=== PATIENT | female | born 1950 | race Caucasian/White ===

== ENCOUNTER 2020-03-21 18:50 | Inpatient (IN) | payer MEDICARE, MEDICAID ==
[~2020-03-21] VITALS: Ht 165.1 cm; Wt 82.3 kg
[2020-03-21 19:00] VITALS: BP 155/66
[2020-03-21] MEDS ORDERED: ONDANSETRON HCL 4MG TABLET PO PRN (19:45)
[2020-03-21] MEDS ORDERED: CLONIDINE 0.1MG TABLET PO PRN (19:45)
[2020-03-21] MEDS ORDERED: IPRATROPIUM/ALBUTEROL 0.5-3(2.5)MG/3ML NEB HHN PRN (19:45)
[2020-03-21] MEDS ORDERED: DEXTROSE 50% WATER 50ML SYRINGE IV PRN (19:45)
[2020-03-21 20:00] VITALS: BP 155/66
[2020-03-21] MEDS: INSULIN LISPRO 100 UNITS/ML SUBCUT SCH (21:00)
[2020-03-21] MEDS: FAMOTIDINE 20MG TABLET PO SCH (21:19)
[2020-03-21] MEDS: ATORVASTATIN CALCIUM 40MG TABLET PO SCH (21:19)
[2020-03-21] MEDS: BLOOD SUGAR DIAGNOSTIC STRIP TEST SCH (21:52)
[2020-03-21] MEDS: HYDROCODONE/ACETAMINOPHEN 5/325MG TABLET PO PRN (22:06)
[2020-03-22] MEDS: HALOPERIDOL LACTATE 5MG/ML VIAL IM PRN ×2 (02:23→21:08)
[2020-03-22] MEDS: BLOOD SUGAR DIAGNOSTIC STRIP TEST SCH ×4 (05:26→21:16)
[2020-03-22] MEDS: INSULIN LISPRO 100 UNITS/ML SUBCUT SCH ×4 (07:01→21:00)
[2020-03-22 08:00] VITALS: BP 13/62
[2020-03-22 08:00] LABS: BASOPHILS % 0.6 % (0.0-2.0); EOSINOPHILS % 4.1 % (0.0-5.0); HEMATOCRIT. 26.2 % (36.0-48.0); HEMOGLOBIN. 8.9 g/dL (12.0-16.0); LYMPHOCYTES % 16.7 % (20.0-50.0); MEAN CORPUSCULAR HEMOGLOBIN 29.8 pg (28.0-32.0); MEAN CORPUSCULAR VOLUME 87.6 fL (81.0-99.0); MEAN PLATELET VOLUME 7.5 fl (7.4-10.4); MONOCYTES % 12.3 % (2.0-8.0); NEUTROPHILS % 66.3 % (40.0-76.0); PLATELET 463 x1000/uL (130-400); RED BLOOD CELL COUNT 2.99 mill/uL (4.2-5.4); RED CELL DISTRIBUTION WIDTH 12.8 % (11.6-14.6)
[2020-03-22 08:20] LABS: CHLORIDE 106 mEq/L (98-107)
[2020-03-22] MEDS: ASPIRIN 81MG EC TABLET PO SCH (10:15)
[2020-03-22] MEDS: AMLODIPINE 5MG TABLET PO SCH (10:16)
[2020-03-22] MEDS: POTASSIUM CHLORIDE 20MEQ TABLET SR PO SCH (10:16)
[2020-03-22] MEDS: PANTOPRAZOLE 40MG DR TABLET PO SCH (10:16)
[2020-03-22] MEDS: LOSARTAN POTASSIUM 50 MG TABLET PO SCH (10:16)
[2020-03-22] MEDS: METFORMIN HCL 500MG TABLET PO SCH ×2 (10:17→17:41)
[2020-03-22] MEDS: GABAPENTIN 300MG CAPSULE PO SCH ×2 (10:17→17:41)
[2020-03-22] MEDS: CLOPIDOGREL 75MG TABLET PO SCH (10:17)
[2020-03-22] MEDS: DULOXETINE HCL 60MG DR CAPSULE PO SCH (10:21)
[2020-03-22] MEDS: ENOXAPARIN 40MG/0.4ML SYR SUBCUT SCH (10:23)
[2020-03-22] MEDS: HYDROCODONE/ACETAMINOPHEN 5/325MG TABLET PO PRN ×2 (10:31→19:02)
[2020-03-22] MEDS: ACETAMINOPHEN 325MG TABLET PO PRN (14:41)
[2020-03-22] MEDS: CEPHALEXIN 250MG CAPSULE PO SCH ×2 (14:42→21:08)
[2020-03-22] MEDS ORDERED: CEFTRIAXONE 2 G PREMIX 50 ML IV SCH (17:00)
[2020-03-22] MEDS ORDERED: CEFTRIAXONE 2 G in DEXTROSE 5% WATER 50 ML IV SCH (17:00)
[2020-03-22 18:11] LABS: VITAMIN B12 SERUM 660 pg/mL (211-911)
[2020-03-22 20:00] VITALS: BP 143/57
[2020-03-22] MEDS: FAMOTIDINE 20MG TABLET PO SCH (21:07)
[2020-03-22] MEDS: ATORVASTATIN CALCIUM 40MG TABLET PO SCH (21:08)
[2020-03-22] MEDS ORDERED: INSULIN GLARGINE UD 100 UNITS/ML SYR SUBCUT SCH (22:00)
[2020-03-22] MEDS ORDERED: CEPHALEXIN 250 MG/5 ML 100ML PO SCH (22:00)
[2020-03-23] MEDS: CEPHALEXIN 250MG CAPSULE PO SCH ×3 (05:41→21:38)
[2020-03-23] MEDS: BLOOD SUGAR DIAGNOSTIC STRIP TEST SCH ×4 (05:44→21:39)
[2020-03-23] MEDS: INSULIN LISPRO 100 UNITS/ML SUBCUT SCH ×4 (05:48→22:11)
[2020-03-23 07:00] LABS: BASOPHILS % 0.7 % (0.0-2.0); EOSINOPHILS % 4.6 % (0.0-5.0); HEMOGLOBIN. 8.7 g/dL (12.0-16.0); LYMPHOCYTES % 17.7 % (20.0-50.0); MEAN CORPUSCULAR HEMOGLOBIN 29.2 pg (28.0-32.0); MEAN CORPUSCULAR VOLUME 87.4 fL (81.0-99.0); MEAN PLATELET VOLUME 7.3 fl (7.4-10.4); MONOCYTES % 13.5 % (2.0-8.0); NEUTROPHILS % 63.5 % (40.0-76.0); PLATELET 500 x1000/uL (130-400); RED BLOOD CELL COUNT 2.98 mill/uL (4.2-5.4); RED CELL DISTRIBUTION WIDTH 12.8 % (11.6-14.6)
[2020-03-23 09:43] VITALS: BP 147/75
[2020-03-23] MEDS: DULOXETINE HCL 60MG DR CAPSULE PO SCH (09:58)
[2020-03-23] MEDS: PANTOPRAZOLE 40MG DR TABLET PO SCH (09:58)
[2020-03-23] MEDS: CLOPIDOGREL 75MG TABLET PO SCH (09:58)
[2020-03-23] MEDS: ASPIRIN 81MG EC TABLET PO SCH (09:58)
[2020-03-23] MEDS: METFORMIN HCL 500MG TABLET PO SCH ×2 (09:58→16:57)
[2020-03-23] MEDS: LOSARTAN POTASSIUM 50 MG TABLET PO SCH (09:58)
[2020-03-23] MEDS: AMLODIPINE 5MG TABLET PO SCH (09:58)
[2020-03-23] MEDS: HYDROCODONE/ACETAMINOPHEN 5/325MG TABLET PO PRN (09:59)
[2020-03-23] MEDS: ENOXAPARIN 40MG/0.4ML SYR SUBCUT SCH (09:59)
[2020-03-23] MEDS: POTASSIUM CHLORIDE 20MEQ TABLET SR PO SCH (09:59)
[2020-03-23] MEDS ORDERED: MAGNESIUM GLUCONATE 500MG TABLET PO SCH (10:00)
[2020-03-23] MEDS: GABAPENTIN 300MG CAPSULE PO SCH ×2 (10:02→16:57)
[2020-03-23] MEDS ORDERED: MAGNESIUM 2 G PREMIX 50 ML IV NR (16:00)
[2020-03-23] MEDS: RISPERIDONE 0.5MG TABLET PO SCH (16:56)
[2020-03-23] MEDS: TRAMADOL 50MG TABLET PO PRN (17:00)
[2020-03-23] MEDS: HYDRALAZINE HCL 25MG TABLET PO SCH ×2 (17:01→21:38)
[2020-03-23] MEDS: MAGNESIUM OXIDE 400MG TABLET PO SCH (19:49)
[2020-03-23 20:00] VITALS: BP 126/64
[2020-03-23] MEDS: FAMOTIDINE 20MG TABLET PO SCH (21:38)
[2020-03-23] MEDS: ATORVASTATIN CALCIUM 40MG TABLET PO SCH (21:39)
[2020-03-23] MEDS: NYSTATIN POWDER 15GM TOP SCH (21:52)
[2020-03-23] MEDS: INSULIN GLARGINE UD 100 UNITS/ML SYR SUBCUT SCH (22:11)
[2020-03-24] MEDS: CEPHALEXIN 250MG CAPSULE PO SCH ×3 (05:12→22:05)
[2020-03-24] MEDS: HYDRALAZINE HCL 25MG TABLET PO SCH ×3 (05:13→22:07)
[2020-03-24] MEDS: BLOOD SUGAR DIAGNOSTIC STRIP TEST SCH ×4 (05:53→21:00)
[2020-03-24 06:09] LABS: BASOPHILS % 0.9 % (0.0-2.0); EOSINOPHILS % 4.4 % (0.0-5.0); HEMATOCRIT. 25.3 % (36.0-48.0); HEMOGLOBIN. 8.4 g/dL (12.0-16.0); LYMPHOCYTES % 18.3 % (20.0-50.0); MEAN CORPUSCULAR HEMOGLOBIN 29.4 pg (28.0-32.0); MEAN CORPUSCULAR VOLUME 88.4 fL (81.0-99.0); MEAN PLATELET VOLUME 7.1 fl (7.4-10.4); MONOCYTES % 10.4 % (2.0-8.0); PLATELET 499 x1000/uL (130-400); RED BLOOD CELL COUNT 2.87 mill/uL (4.2-5.4)
[2020-03-24 07:56] VITALS: BP 129/73
[2020-03-24] MEDS: POTASSIUM CHLORIDE 20MEQ TABLET SR PO SCH (08:38)
[2020-03-24] MEDS: METFORMIN HCL 500MG TABLET PO SCH ×2 (08:38→16:22)
[2020-03-24] MEDS: ASPIRIN 81MG EC TABLET PO SCH (08:38)
[2020-03-24] MEDS: ENOXAPARIN 40MG/0.4ML SYR SUBCUT SCH (08:39)
[2020-03-24] MEDS: AMLODIPINE 5MG TABLET PO SCH (08:39)
[2020-03-24] MEDS: GABAPENTIN 300MG CAPSULE PO SCH ×2 (08:39→16:22)
[2020-03-24] MEDS: INSULIN LISPRO 100 UNITS/ML SUBCUT SCH ×4 (08:39→22:03)
[2020-03-24] MEDS: MAGNESIUM OXIDE 400MG TABLET PO SCH ×2 (08:39→16:22)
[2020-03-24] MEDS: CLOPIDOGREL 75MG TABLET PO SCH (08:39)
[2020-03-24] MEDS: PANTOPRAZOLE 40MG DR TABLET PO SCH (08:39)
[2020-03-24] MEDS: DULOXETINE HCL 60MG DR CAPSULE PO SCH (08:39)
[2020-03-24] MEDS: RISPERIDONE 0.5MG TABLET PO SCH (08:39)
[2020-03-24] MEDS: LOSARTAN POTASSIUM 50 MG TABLET PO SCH (08:39)
[2020-03-24] MEDS: NYSTATIN POWDER 15GM TOP SCH ×2 (08:41→21:00)
[2020-03-24] MEDS ORDERED: MAGNESIUM OXIDE 400MG TABLET PO SCH (09:00)
[2020-03-24 19:35] VITALS: BP 123/63
[2020-03-24] MEDS: ATORVASTATIN CALCIUM 40MG TABLET PO SCH (22:04)
[2020-03-24] MEDS: FAMOTIDINE 20MG TABLET PO SCH (22:05)
[2020-03-24] MEDS: INSULIN GLARGINE UD 100 UNITS/ML SYR SUBCUT SCH (22:10)
[2020-03-25] MEDS: BLOOD SUGAR DIAGNOSTIC STRIP TEST SCH ×4 (05:42→21:25)
[2020-03-25] MEDS: CEPHALEXIN 250MG CAPSULE PO SCH ×3 (05:42→21:48)
[2020-03-25] MEDS: HYDRALAZINE HCL 25MG TABLET PO SCH ×3 (05:42→21:49)
[2020-03-25] MEDS: INSULIN LISPRO 100 UNITS/ML SUBCUT SCH ×4 (05:59→21:53)
[2020-03-25 07:31] VITALS: BP 122/65
[2020-03-25] MEDS: NYSTATIN POWDER 15GM TOP SCH ×2 (08:24→21:34)
[2020-03-25] MEDS: ENOXAPARIN 40MG/0.4ML SYR SUBCUT SCH (08:24)
[2020-03-25] MEDS: METFORMIN HCL 500MG TABLET PO SCH ×2 (08:24→16:55)
[2020-03-25] MEDS: GABAPENTIN 300MG CAPSULE PO SCH ×2 (08:25→16:55)
[2020-03-25] MEDS: ASPIRIN 81MG EC TABLET PO SCH (08:25)
[2020-03-25] MEDS: CLOPIDOGREL 75MG TABLET PO SCH (08:25)
[2020-03-25] MEDS: POTASSIUM CHLORIDE 20MEQ TABLET SR PO SCH (08:25)
[2020-03-25] MEDS: RISPERIDONE 0.5MG TABLET PO SCH (08:25)
[2020-03-25] MEDS: DULOXETINE HCL 60MG DR CAPSULE PO SCH (08:25)
[2020-03-25] MEDS: AMLODIPINE 5MG TABLET PO SCH (08:25)
[2020-03-25] MEDS: MAGNESIUM OXIDE 400MG TABLET PO SCH ×2 (08:25→16:55)
[2020-03-25] MEDS: PANTOPRAZOLE 40MG DR TABLET PO SCH (08:25)
[2020-03-25] MEDS: LOSARTAN POTASSIUM 50 MG TABLET PO SCH (08:28)
[2020-03-25 13:06] VITALS: BP 134/70
[2020-03-25] MEDS: TRAMADOL 50MG TABLET PO PRN (17:01)
[2020-03-25] MEDS: HYDROCODONE/ACETAMINOPHEN 5/325MG TABLET PO PRN (18:20)
[2020-03-25 20:00] VITALS: BP 129/65
[2020-03-25] MEDS: ATORVASTATIN CALCIUM 40MG TABLET PO SCH (21:49)
[2020-03-25] MEDS: FAMOTIDINE 20MG TABLET PO SCH (21:49)
[2020-03-25] MEDS: INSULIN GLARGINE UD 100 UNITS/ML SYR SUBCUT SCH (21:54)
[2020-03-26] MEDS: HYDRALAZINE HCL 25MG TABLET PO SCH ×3 (06:00→20:33)
[2020-03-26] MEDS: BLOOD SUGAR DIAGNOSTIC STRIP TEST SCH ×4 (06:19→21:00)
[2020-03-26] MEDS: CEPHALEXIN 250MG CAPSULE PO SCH ×3 (06:32→20:34)
[2020-03-26] MEDS: INSULIN LISPRO 100 UNITS/ML SUBCUT SCH ×5 (06:33→22:24)
[2020-03-26 06:53] LABS: BASOPHILS % 1.3 % (0.0-2.0); EOSINOPHILS % 6.2 % (0.0-5.0); HEMATOCRIT. 24.8 % (36.0-48.0); HEMOGLOBIN. 8.2 g/dL (12.0-16.0); LYMPHOCYTES % 18.6 % (20.0-50.0); MEAN CORPUSCULAR HEMOGLOBIN 29.3 pg (28.0-32.0); MEAN CORPUSCULAR VOLUME 88.8 fL (81.0-99.0); MEAN PLATELET VOLUME 7.1 fl (7.4-10.4); MONOCYTES % 13.3 % (2.0-8.0); NEUTROPHILS % 60.6 % (40.0-76.0); PLATELET 513 x1000/uL (130-400); RED BLOOD CELL COUNT 2.79 mill/uL (4.2-5.4); RED CELL DISTRIBUTION WIDTH 13.2 % (11.6-14.6)
[2020-03-26 07:48] VITALS: BP 113/68
[2020-03-26 07:57] LABS: PHOSPHORUS 3.8 mg/dL (2.5-4.9)
[2020-03-26 08:02] VITALS: BP 113/68
[2020-03-26] MEDS: POTASSIUM CHLORIDE 20MEQ TABLET SR PO SCH (08:52)
[2020-03-26] MEDS: GABAPENTIN 300MG CAPSULE PO SCH ×2 (08:52→17:44)
[2020-03-26] MEDS: RISPERIDONE 0.5MG TABLET PO SCH (08:52)
[2020-03-26] MEDS: MAGNESIUM OXIDE 400MG TABLET PO SCH ×2 (08:52→17:44)
[2020-03-26] MEDS: ASPIRIN 81MG EC TABLET PO SCH (08:52)
[2020-03-26] MEDS: DULOXETINE HCL 60MG DR CAPSULE PO SCH (08:52)
[2020-03-26] MEDS: PANTOPRAZOLE 40MG DR TABLET PO SCH (08:52)
[2020-03-26] MEDS: LOSARTAN POTASSIUM 50 MG TABLET PO SCH (08:52)
[2020-03-26] MEDS: CLOPIDOGREL 75MG TABLET PO SCH (08:52)
[2020-03-26] MEDS: AMLODIPINE 5MG TABLET PO SCH (08:53)
[2020-03-26] MEDS: ENOXAPARIN 40MG/0.4ML SYR SUBCUT SCH (08:53)
[2020-03-26] MEDS: METFORMIN HCL 500MG TABLET PO SCH ×2 (08:53→17:44)
[2020-03-26] MEDS: NYSTATIN POWDER 15GM TOP SCH ×2 (08:55→20:34)
[2020-03-26] MEDS: HYDROCODONE/ACETAMINOPHEN 5/325MG TABLET PO PRN (14:46)
[2020-03-26] MEDS: FAMOTIDINE 20MG TABLET PO SCH (20:32)
[2020-03-26] MEDS: ATORVASTATIN CALCIUM 40MG TABLET PO SCH (20:33)
[2020-03-26] MEDS ORDERED: INSULIN GLARGINE UD 100 UNITS/ML SYR SUBCUT SCH (22:00)
[2020-03-26 22:03] VITALS: BP 130/69
[2020-03-27] MEDS: HYDRALAZINE HCL 25MG TABLET PO SCH ×3 (05:45→22:00)
[2020-03-27] MEDS: CEPHALEXIN 250MG CAPSULE PO SCH ×2 (05:46→13:09)
[2020-03-27] MEDS: BLOOD SUGAR DIAGNOSTIC STRIP TEST SCH ×4 (05:46→21:12)
[2020-03-27] MEDS: INSULIN LISPRO 100 UNITS/ML SUBCUT SCH ×4 (06:08→21:14)
[2020-03-27 07:48] VITALS: BP 149/90
[2020-03-27] MEDS: TRAMADOL 50MG TABLET PO PRN ×2 (08:08→20:46)
[2020-03-27] MEDS: LOSARTAN POTASSIUM 50 MG TABLET PO SCH (08:28)
[2020-03-27] MEDS: POTASSIUM CHLORIDE 20MEQ TABLET SR PO SCH (08:28)
[2020-03-27] MEDS: RISPERIDONE 0.5MG TABLET PO SCH (08:28)
[2020-03-27] MEDS: ASPIRIN 81MG EC TABLET PO SCH (08:28)
[2020-03-27] MEDS: METFORMIN HCL 500MG TABLET PO SCH ×2 (08:28→16:56)
[2020-03-27] MEDS: GABAPENTIN 300MG CAPSULE PO SCH ×2 (08:28→16:57)
[2020-03-27] MEDS: DULOXETINE HCL 60MG DR CAPSULE PO SCH (08:28)
[2020-03-27] MEDS: CLOPIDOGREL 75MG TABLET PO SCH (08:28)
[2020-03-27] MEDS: AMLODIPINE 5MG TABLET PO SCH ×2 (08:29→20:48)
[2020-03-27] MEDS: ENOXAPARIN 40MG/0.4ML SYR SUBCUT SCH (08:29)
[2020-03-27] MEDS: NYSTATIN POWDER 15GM TOP SCH ×2 (08:31→20:47)
[2020-03-27] MEDS: ACETAMINOPHEN 325MG TABLET PO PRN (12:02)
[2020-03-27 20:00] VITALS: BP 140/77
[2020-03-27 20:30] VITALS: BP 129/70
[2020-03-27] MEDS: ATORVASTATIN CALCIUM 40MG TABLET PO SCH (20:45)
[2020-03-27] MEDS: FAMOTIDINE 20MG TABLET PO SCH (20:45)
[2020-03-27] MEDS ORDERED: INSULIN GLARGINE UD 100 UNITS/ML SYR SUBCUT SCH (22:00)
[2020-03-28] MEDS: HYDRALAZINE HCL 25MG TABLET PO SCH ×3 (05:05→21:34)
[2020-03-28] MEDS: BLOOD SUGAR DIAGNOSTIC STRIP TEST SCH ×4 (06:14→20:08)
[2020-03-28] MEDS: INSULIN LISPRO 100 UNITS/ML SUBCUT SCH ×4 (06:32→20:20)
[2020-03-28 06:53] LABS: BASOPHILS % 1.4 % (0.0-2.0); HEMATOCRIT. 23.7 % (36.0-48.0); HEMOGLOBIN. 7.9 g/dL (12.0-16.0); MEAN CORPUSCULAR HEMOGLOBIN 29.4 pg (28.0-32.0); MEAN CORPUSCULAR VOLUME 88.2 fL (81.0-99.0); NEUTROPHILS % 58.6 % (40.0-76.0); PLATELET 491 x1000/uL (130-400); RED BLOOD CELL COUNT 2.69 mill/uL (4.2-5.4); RED CELL DISTRIBUTION WIDTH 13.4 % (11.6-14.6)
[2020-03-28 08:13] VITALS: BP 117/58
[2020-03-28] MEDS: GABAPENTIN 300MG CAPSULE PO SCH ×2 (09:41→16:28)
[2020-03-28] MEDS: AMLODIPINE 5MG TABLET PO SCH ×2 (09:41→20:07)
[2020-03-28] MEDS: DULOXETINE HCL 60MG DR CAPSULE PO SCH (09:41)
[2020-03-28] MEDS: POTASSIUM CHLORIDE 20MEQ TABLET SR PO SCH (09:42)
[2020-03-28] MEDS: ENOXAPARIN 40MG/0.4ML SYR SUBCUT SCH (09:42)
[2020-03-28] MEDS: CLOPIDOGREL 75MG TABLET PO SCH (09:42)
[2020-03-28] MEDS: LOSARTAN POTASSIUM 50 MG TABLET PO SCH (09:42)
[2020-03-28] MEDS: ASPIRIN 81MG EC TABLET PO SCH (09:42)
[2020-03-28] MEDS: METFORMIN HCL 500MG TABLET PO SCH ×2 (09:42→16:28)
[2020-03-28] MEDS: RISPERIDONE 0.5MG TABLET PO SCH (09:42)
[2020-03-28] MEDS: MAGNESIUM GLUCONATE 500MG TABLET PO SCH (09:44)
[2020-03-28] MEDS: NYSTATIN POWDER 15GM TOP SCH ×2 (09:44→20:07)
[2020-03-28] MEDS ORDERED: MAGNESIUM 2 G PREMIX 50 ML IV SCH (12:00)
[2020-03-28] MEDS: HYDROCODONE/ACETAMINOPHEN 5/325MG TABLET PO PRN (12:11)
[2020-03-28] MEDS: ACETAMINOPHEN 325MG TABLET PO PRN (16:28)
[2020-03-28 20:00] VITALS: BP 120/69
[2020-03-28] MEDS: FAMOTIDINE 20MG TABLET PO SCH (20:08)
[2020-03-28] MEDS: ATORVASTATIN CALCIUM 40MG TABLET PO SCH (20:08)
[2020-03-28] MEDS: TRAMADOL 50MG TABLET PO PRN (21:37)
[2020-03-28] MEDS: INSULIN GLARGINE UD 100 UNITS/ML SYR SUBCUT SCH (21:40)
[2020-03-29] MEDS: HYDRALAZINE HCL 25MG TABLET PO SCH ×3 (06:02→21:51)
[2020-03-29] MEDS: TRAMADOL 50MG TABLET PO PRN (06:03)
[2020-03-29] MEDS: BLOOD SUGAR DIAGNOSTIC STRIP TEST SCH ×4 (06:03→21:46)
[2020-03-29] MEDS: INSULIN LISPRO 100 UNITS/ML SUBCUT SCH ×4 (06:07→21:53)
[2020-03-29 06:50] LABS: BASOPHILS % 1.5 % (0.0-2.0); EOSINOPHILS % 6.5 % (0.0-5.0); HEMATOCRIT. 26.3 % (36.0-48.0); HEMOGLOBIN. 8.7 g/dL (12.0-16.0); LYMPHOCYTES % 23.3 % (20.0-50.0); MEAN CORPUSCULAR HEMOGLOBIN 29.4 pg (28.0-32.0); MEAN CORPUSCULAR VOLUME 88.7 fL (81.0-99.0); MEAN PLATELET VOLUME 7.1 fl (7.4-10.4); MONOCYTES % 14.8 % (2.0-8.0); NEUTROPHILS % 53.9 % (40.0-76.0); PLATELET 507 x1000/uL (130-400); RED BLOOD CELL COUNT 2.96 mill/uL (4.2-5.4); RED CELL DISTRIBUTION WIDTH 13.5 % (11.6-14.6)
[2020-03-29 07:27] VITALS: BP 144/78
[2020-03-29] MEDS: METFORMIN HCL 500MG TABLET PO SCH ×2 (08:40→16:41)
[2020-03-29] MEDS: ENOXAPARIN 40MG/0.4ML SYR SUBCUT SCH (08:40)
[2020-03-29] MEDS: AMLODIPINE 5MG TABLET PO SCH ×2 (08:40→21:54)
[2020-03-29] MEDS: ASPIRIN 81MG EC TABLET PO SCH (08:40)
[2020-03-29] MEDS: MAGNESIUM GLUCONATE 500MG TABLET PO SCH (08:40)
[2020-03-29] MEDS: LOSARTAN POTASSIUM 50 MG TABLET PO SCH (08:41)
[2020-03-29] MEDS: DULOXETINE HCL 60MG DR CAPSULE PO SCH (08:41)
[2020-03-29] MEDS: CLOPIDOGREL 75MG TABLET PO SCH (08:41)
[2020-03-29] MEDS: GABAPENTIN 300MG CAPSULE PO SCH ×2 (08:41→16:41)
[2020-03-29] MEDS: RISPERIDONE 0.5MG TABLET PO SCH (08:41)
[2020-03-29] MEDS: NYSTATIN POWDER 15GM TOP SCH ×2 (08:44→21:53)
[2020-03-29 13:52] VITALS: BP 126/78
[2020-03-29 19:57] VITALS: BP 127/71
[2020-03-29] MEDS: FAMOTIDINE 20MG TABLET PO SCH (21:50)
[2020-03-29] MEDS: ATORVASTATIN CALCIUM 40MG TABLET PO SCH (21:50)
[2020-03-29] MEDS: INSULIN GLARGINE UD 100 UNITS/ML SYR SUBCUT SCH (21:52)
[2020-03-29] MEDS: ACETAMINOPHEN 325MG TABLET PO PRN (22:30)
[2020-03-30] MEDS: BLOOD SUGAR DIAGNOSTIC STRIP TEST SCH ×4 (06:17→20:33)
[2020-03-30] MEDS: HYDRALAZINE HCL 25MG TABLET PO SCH (06:22)
[2020-03-30 06:33] LABS: HEMATOCRIT. 27.2 % (36.0-48.0); HEMOGLOBIN. 8.9 g/dL (12.0-16.0); MEAN CORPUSCULAR HEMOGLOBIN 29.2 pg (28.0-32.0); MEAN CORPUSCULAR VOLUME 89.1 fL (81.0-99.0); MEAN PLATELET VOLUME 7.3 fl (7.4-10.4); PLATELET 475 x1000/uL (130-400); RED BLOOD CELL COUNT 3.05 mill/uL (4.2-5.4); RED CELL DISTRIBUTION WIDTH 13.7 % (11.6-14.6)
[2020-03-30 07:47] VITALS: BP 148/74
[2020-03-30] MEDS: GABAPENTIN 300MG CAPSULE PO SCH ×2 (08:04→16:54)
[2020-03-30] MEDS: ENOXAPARIN 40MG/0.4ML SYR SUBCUT SCH (08:04)
[2020-03-30] MEDS: ASPIRIN 81MG EC TABLET PO SCH (08:04)
[2020-03-30] MEDS: AMLODIPINE 5MG TABLET PO SCH ×2 (08:04→21:36)
[2020-03-30] MEDS: MAGNESIUM GLUCONATE 500MG TABLET PO SCH (08:04)
[2020-03-30] MEDS: RISPERIDONE 0.5MG TABLET PO SCH (08:05)
[2020-03-30] MEDS: NYSTATIN POWDER 15GM TOP SCH ×2 (08:05→21:36)
[2020-03-30] MEDS: LOSARTAN POTASSIUM 50 MG TABLET PO SCH (08:05)
[2020-03-30] MEDS: METFORMIN HCL 500MG TABLET PO SCH ×2 (08:05→16:54)
[2020-03-30] MEDS: DULOXETINE HCL 60MG DR CAPSULE PO SCH (08:05)
[2020-03-30] MEDS: CLOPIDOGREL 75MG TABLET PO SCH (08:05)
[2020-03-30] MEDS: INSULIN LISPRO 100 UNITS/ML SUBCUT SCH ×4 (08:06→20:56)
[2020-03-30] MEDS ORDERED: MAGNESIUM GLUCONATE 500MG TABLET PO NR (09:00)
[2020-03-30] MEDS ORDERED: MAGNESIUM 2 G PREMIX 50 ML IV NR (10:00)
[2020-03-30 10:30] LABS: PLATELET ESTIMATE INCREASED
[2020-03-30] MEDS: HYDRALAZINE HCL 50MG TABLET PO SCH ×2 (14:03→21:36)
[2020-03-30] MEDS: HYDROCODONE/ACETAMINOPHEN 5/325MG TABLET PO PRN (14:03)
[2020-03-30] MEDS ORDERED: CYANOCOBALAMIN 1000MCG/ML VIAL IM NR (16:00)
[2020-03-30 17:20] LABS: CREATINE KINASE 59 IU/L (26-192)
[2020-03-30 20:00] VITALS: BP 138/75
[2020-03-30] MEDS: FAMOTIDINE 20MG TABLET PO SCH (21:35)
[2020-03-30] MEDS: ATORVASTATIN CALCIUM 40MG TABLET PO SCH (21:36)
[2020-03-30] MEDS: INSULIN GLARGINE UD 100 UNITS/ML SYR SUBCUT SCH (21:38)
[2020-03-31] MEDS: BLOOD SUGAR DIAGNOSTIC STRIP TEST SCH ×4 (05:49→21:21)
[2020-03-31] MEDS: HYDRALAZINE HCL 50MG TABLET PO SCH ×3 (05:50→21:24)
[2020-03-31 06:42] LABS: BASOPHILS % 1.8 % (0.0-2.0); EOSINOPHILS % 6.7 % (0.0-5.0); HEMATOCRIT. 25.9 % (36.0-48.0); HEMOGLOBIN. 8.7 g/dL (12.0-16.0); LYMPHOCYTES % 21.9 % (20.0-50.0); MEAN CORPUSCULAR HEMOGLOBIN 29.9 pg (28.0-32.0); MEAN CORPUSCULAR VOLUME 88.5 fL (81.0-99.0); MEAN PLATELET VOLUME 7.3 fl (7.4-10.4); MONOCYTES % 12.7 % (2.0-8.0); NEUTROPHILS % 56.9 % (40.0-76.0); PLATELET 481 x1000/uL (130-400); RED BLOOD CELL COUNT 2.93 mill/uL (4.2-5.4); RED CELL DISTRIBUTION WIDTH 13.9 % (11.6-14.6)
[2020-03-31 06:56] LABS: PHOSPHORUS 3.9 mg/dL (2.5-4.9)
[2020-03-31 07:21] LABS: FOLIC ACID (FOLATE) SERUM 12.7 ng/mL (>5.38)
[2020-03-31 08:00] VITALS: BP 125/62
[2020-03-31] MEDS: INSULIN LISPRO 100 UNITS/ML SUBCUT SCH ×4 (09:00→21:33)
[2020-03-31] MEDS: GABAPENTIN 300MG CAPSULE PO SCH ×2 (09:01→16:23)
[2020-03-31] MEDS: ASPIRIN 81MG EC TABLET PO SCH (09:01)
[2020-03-31] MEDS: CLOPIDOGREL 75MG TABLET PO SCH (09:01)
[2020-03-31] MEDS: RISPERIDONE 0.5MG TABLET PO SCH (09:01)
[2020-03-31] MEDS: METFORMIN HCL 500MG TABLET PO SCH ×2 (09:01→16:23)
[2020-03-31] MEDS: AMLODIPINE 5MG TABLET PO SCH ×2 (09:02→21:24)
[2020-03-31] MEDS: MAGNESIUM GLUCONATE 500MG TABLET PO SCH (09:02)
[2020-03-31] MEDS: DULOXETINE HCL 60MG DR CAPSULE PO SCH (09:02)
[2020-03-31] MEDS: ENOXAPARIN 40MG/0.4ML SYR SUBCUT SCH (09:03)
[2020-03-31] MEDS: NYSTATIN POWDER 15GM TOP SCH ×2 (09:04→21:25)
[2020-03-31] MEDS: FERROUS SULFATE 325MG TABLET PO SCH ×2 (12:24→16:23)
[2020-03-31] MEDS: MAGNESIUM OXIDE 400MG TABLET PO SCH ×2 (12:24→21:24)
[2020-03-31] MEDS: ACETAMINOPHEN 325MG TABLET PO PRN (13:06)
[2020-03-31 20:00] VITALS: BP 133/69
[2020-03-31] MEDS: FAMOTIDINE 20MG TABLET PO SCH (21:24)
[2020-03-31] MEDS: ATORVASTATIN CALCIUM 40MG TABLET PO SCH (21:25)
[2020-03-31] MEDS: INSULIN GLARGINE UD 100 UNITS/ML SYR SUBCUT SCH (21:32)
[2020-04-01] MEDS: HYDROCODONE/ACETAMINOPHEN 5/325MG TABLET PO PRN (01:37)
[2020-04-01] MEDS: BLOOD SUGAR DIAGNOSTIC STRIP TEST SCH ×4 (06:00→21:44)
[2020-04-01] MEDS: HYDRALAZINE HCL 50MG TABLET PO SCH ×3 (06:05→22:00)
[2020-04-01] MEDS: INSULIN LISPRO 100 UNITS/ML SUBCUT SCH ×4 (06:07→21:00)
[2020-04-01 07:46] VITALS: BP 142/67
[2020-04-01] MEDS: ENOXAPARIN 40MG/0.4ML SYR SUBCUT SCH (08:46)
[2020-04-01] MEDS: ASPIRIN 81MG EC TABLET PO SCH (08:46)
[2020-04-01] MEDS: MAGNESIUM GLUCONATE 500MG TABLET PO SCH (08:46)
[2020-04-01] MEDS: ASCORBIC ACID 500 MG TABLET PO SCH (08:47)
[2020-04-01] MEDS: AMLODIPINE 5MG TABLET PO SCH ×2 (08:47→21:42)
[2020-04-01] MEDS: FERROUS SULFATE 325MG TABLET PO SCH ×3 (08:47→16:54)
[2020-04-01] MEDS: CLOPIDOGREL 75MG TABLET PO SCH (08:47)
[2020-04-01] MEDS: GABAPENTIN 300MG CAPSULE PO SCH ×2 (08:47→16:54)
[2020-04-01] MEDS: METFORMIN HCL 500MG TABLET PO SCH ×2 (08:47→16:54)
[2020-04-01] MEDS: DULOXETINE HCL 60MG DR CAPSULE PO SCH (08:47)
[2020-04-01] MEDS: RISPERIDONE 0.5MG TABLET PO SCH (08:47)
[2020-04-01] MEDS: MAGNESIUM OXIDE 400MG TABLET PO SCH ×2 (08:47→21:42)
[2020-04-01] MEDS: NYSTATIN POWDER 15GM TOP SCH ×2 (08:48→21:43)
[2020-04-01 20:00] VITALS: BP 118/82
[2020-04-01] MEDS: ATORVASTATIN CALCIUM 40MG TABLET PO SCH (21:42)
[2020-04-01] MEDS: FAMOTIDINE 20MG TABLET PO SCH (21:42)
[2020-04-01] MEDS ORDERED: INSULIN GLARGINE UD 100 UNITS/ML SYR SUBCUT SCH (22:00)
[2020-04-02 03:32] LABS: CLARITY URINE CLEAR (CLEAR); COLOR URINE YELLOW (YELLOW); KETONES URINE NEGATIVE (NEGATIVE); LEUKOCYTE ESTERASE URINE NEGATIVE (NEGATIVE); NITRITE URINE NEGATIVE (NEGATIVE); OCCULT BLOOD URINE NEGATIVE (NEGATIVE); PH URINE 6.5 (4.5-8.0); PROTEIN URINE NEGATIVE (NEGATIVE); SPECIFIC GRAVITY URINE 1.007 (1.005-1.030); UROBILINOGEN URINE 0.2 E.U./dL (0.2-1.0)
[2020-04-02] MEDS: TRAMADOL 50MG TABLET PO PRN (05:28)
[2020-04-02] MEDS: BLOOD SUGAR DIAGNOSTIC STRIP TEST SCH ×4 (05:59→21:24)
[2020-04-02] MEDS: HYDRALAZINE HCL 50MG TABLET PO SCH ×2 (06:07→13:56)
[2020-04-02] MEDS: INSULIN LISPRO 100 UNITS/ML SUBCUT SCH ×4 (06:10→21:47)
[2020-04-02 07:13] LABS: BASOPHILS % 1.6 % (0.0-2.0); EOSINOPHILS % 5.8 % (0.0-5.0); HEMATOCRIT. 24.9 % (36.0-48.0); HEMOGLOBIN. 8.4 g/dL (12.0-16.0); LYMPHOCYTES % 22.6 % (20.0-50.0); MEAN CORPUSCULAR HEMOGLOBIN 29.8 pg (28.0-32.0); MEAN CORPUSCULAR VOLUME 88.8 fL (81.0-99.0); MEAN PLATELET VOLUME 7.4 fl (7.4-10.4); MONOCYTES % 12.3 % (2.0-8.0); NEUTROPHILS % 57.7 % (40.0-76.0); PLATELET 380 x1000/uL (130-400); RED BLOOD CELL COUNT 2.81 mill/uL (4.2-5.4); RED CELL DISTRIBUTION WIDTH 13.7 % (11.6-14.6)
[2020-04-02 08:00] VITALS: BP 141/57
[2020-04-02] MEDS: FERROUS SULFATE 325MG TABLET PO SCH ×3 (08:16→16:57)
[2020-04-02] MEDS: MAGNESIUM GLUCONATE 500MG TABLET PO SCH (08:16)
[2020-04-02] MEDS: ASCORBIC ACID 500 MG TABLET PO SCH (08:16)
[2020-04-02] MEDS: METFORMIN HCL 500MG TABLET PO SCH ×2 (08:16→16:57)
[2020-04-02] MEDS: DULOXETINE HCL 60MG DR CAPSULE PO SCH (08:16)
[2020-04-02] MEDS: RISPERIDONE 0.5MG TABLET PO SCH (08:16)
[2020-04-02] MEDS: MAGNESIUM OXIDE 400MG TABLET PO SCH ×2 (08:16→21:27)
[2020-04-02] MEDS: GABAPENTIN 300MG CAPSULE PO SCH ×2 (08:16→17:00)
[2020-04-02] MEDS: ENOXAPARIN 40MG/0.4ML SYR SUBCUT SCH (08:17)
[2020-04-02] MEDS: CLOPIDOGREL 75MG TABLET PO SCH (08:17)
[2020-04-02] MEDS: ASPIRIN 81MG EC TABLET PO SCH (08:17)
[2020-04-02] MEDS: AMLODIPINE 5MG TABLET PO SCH ×2 (08:17→21:25)
[2020-04-02] MEDS: NYSTATIN POWDER 15GM TOP SCH ×2 (08:22→21:25)
[2020-04-02] MEDS ORDERED: INSULIN LISPRO 100 UNITS/ML SUBCUT SCH (13:00)
[2020-04-02] MEDS ORDERED: LANTUSUD SUBCUT (13:08)
[2020-04-02] MEDS ORDERED: DULO60CA44 PO (13:08)
[2020-04-02] MEDS ORDERED: INSLIS SUBCUT (13:08)
[2020-04-02] MEDS ORDERED: METF500T PO (13:08)
[2020-04-02] MEDS ORDERED: LIP40 PO (13:08)
[2020-04-02] MEDS ORDERED: HYDR-4135 PO (13:08)
[2020-04-02] MEDS ORDERED: CLOP75TA15 PO (13:08)
[2020-04-02] MEDS ORDERED: GABA-531 PO (13:08)
[2020-04-02] MEDS ORDERED: FERR325T23 PO (13:08)
[2020-04-02] MEDS ORDERED: TOPUD PO (13:08)
[2020-04-02] MEDS ORDERED: ASCO500T20 PO (13:08)
[2020-04-02] MEDS ORDERED: FAMO20TA8 PO (13:08)
[2020-04-02] MEDS ORDERED: MAG500 PO (13:08)
[2020-04-02] MEDS ORDERED: ASPI-1158 PO (13:08)
[2020-04-02] MEDS ORDERED: AMLO5TAB88 PO (13:08)
[2020-04-02] MEDS ORDERED: TRAM50TA3 MT (13:10)
[2020-04-02] MEDS ORDERED: DEXTROSE 50% WATER 50ML SYRINGE IV PRN (18:00)
[2020-04-02 20:00] VITALS: BP 148/78
[2020-04-02] MEDS ORDERED: BLOOD SUGAR DIAGNOSTIC STRIP TEST SCH (21:00)
[2020-04-02] MEDS: FAMOTIDINE 20MG TABLET PO SCH (21:24)
[2020-04-02] MEDS: ACETAMINOPHEN 325MG TABLET PO PRN (21:24)
[2020-04-02] MEDS: ATORVASTATIN CALCIUM 40MG TABLET PO SCH (21:24)
[2020-04-02] MEDS ORDERED: INSULIN GLARGINE UD 100 UNITS/ML SYR SUBCUT SCH (22:00)
[2020-04-03] MEDS: HYDRALAZINE HCL 50MG TABLET PO SCH ×4 (00:05→21:56)
[2020-04-03] MEDS: ACETAMINOPHEN 325MG TABLET PO PRN ×2 (05:42→21:58)
[2020-04-03] MEDS: BLOOD SUGAR DIAGNOSTIC STRIP TEST SCH ×4 (06:03→21:57)
[2020-04-03] MEDS: INSULIN LISPRO 100 UNITS/ML SUBCUT SCH ×7 (06:34→21:57)
[2020-04-03 07:39] VITALS: BP 127/70
[2020-04-03 08:03] LABS: BASOPHILS % 1.7 % (0.0-2.0); EOSINOPHILS % 6.3 % (0.0-5.0); HEMATOCRIT. 24.4 % (36.0-48.0); HEMOGLOBIN. 8.2 g/dL (12.0-16.0); LYMPHOCYTES % 25.2 % (20.0-50.0); MEAN CORPUSCULAR HEMOGLOBIN 29.8 pg (28.0-32.0); MEAN CORPUSCULAR VOLUME 88.5 fL (81.0-99.0); MEAN PLATELET VOLUME 7.7 fl (7.4-10.4); MONOCYTES % 13.2 % (2.0-8.0); NEUTROPHILS % 53.6 % (40.0-76.0); PLATELET 354 x1000/uL (130-400); RED BLOOD CELL COUNT 2.76 mill/uL (4.2-5.4); RED CELL DISTRIBUTION WIDTH 14.1 % (11.6-14.6)
[2020-04-03] MEDS: ASPIRIN 81MG EC TABLET PO SCH (08:13)
[2020-04-03] MEDS: METFORMIN HCL 500MG TABLET PO SCH ×2 (08:13→17:23)
[2020-04-03] MEDS: AMLODIPINE 5MG TABLET PO SCH ×2 (08:14→21:57)
[2020-04-03] MEDS: FERROUS SULFATE 325MG TABLET PO SCH ×3 (08:14→17:23)
[2020-04-03] MEDS: CLOPIDOGREL 75MG TABLET PO SCH (08:14)
[2020-04-03] MEDS: GABAPENTIN 300MG CAPSULE PO SCH ×2 (08:14→17:23)
[2020-04-03] MEDS: ASCORBIC ACID 500 MG TABLET PO SCH (08:14)
[2020-04-03] MEDS: RISPERIDONE 0.5MG TABLET PO SCH (08:14)
[2020-04-03] MEDS: ENOXAPARIN 40MG/0.4ML SYR SUBCUT SCH (08:14)
[2020-04-03] MEDS: MAGNESIUM OXIDE 400MG TABLET PO SCH ×2 (08:14→21:55)
[2020-04-03] MEDS: NYSTATIN POWDER 15GM TOP SCH ×2 (11:42→22:34)
[2020-04-03 11:58] VITALS: BP 127/70
[2020-04-03] MEDS: DULOXETINE HCL 60MG DR CAPSULE PO SCH (12:20)
[2020-04-03] MEDS: MAGNESIUM GLUCONATE 500MG TABLET PO SCH (12:20)
[2020-04-03] MEDS ORDERED: INSU100I28 SQ (12:24)
[2020-04-03] MEDS ORDERED: NYST15PO4 TP (13:00)
[2020-04-03] MEDS ORDERED: CLIN150C14 MT (13:00)
[2020-04-03] MEDS: TRAMADOL 50MG TABLET PO PRN ×2 (13:22→23:37)
[2020-04-03] MEDS: HALOPERIDOL LACTATE 5MG/ML VIAL IM PRN (16:29)
[2020-04-03] MEDS: CEPHALEXIN 250MG CAPSULE PO SCH ×2 (17:23→23:33)
[2020-04-03 20:00] VITALS: BP 148/96
[2020-04-03] MEDS: FAMOTIDINE 20MG TABLET PO SCH (21:56)
[2020-04-03] MEDS: ATORVASTATIN CALCIUM 40MG TABLET PO SCH (21:56)
[2020-04-03] MEDS: INSULIN GLARGINE UD 100 UNITS/ML SYR SUBCUT SCH (22:32)
[2020-04-04] MEDS: CEPHALEXIN 250MG CAPSULE PO SCH ×3 (06:33→17:13)
[2020-04-04] MEDS: HYDRALAZINE HCL 50MG TABLET PO SCH ×3 (06:33→22:00)
[2020-04-04] MEDS: INSULIN LISPRO 100 UNITS/ML SUBCUT SCH ×7 (06:53→21:47)
[2020-04-04] MEDS: BLOOD SUGAR DIAGNOSTIC STRIP TEST SCH ×4 (06:53→21:44)
[2020-04-04 06:55] LABS: BASOPHILS % 2.4 % (0.0-2.0); EOSINOPHILS % 6.7 % (0.0-5.0); HEMOGLOBIN. 8.4 g/dL (12.0-16.0); LYMPHOCYTES % 25.7 % (20.0-50.0); MEAN CORPUSCULAR HEMOGLOBIN 30.1 pg (28.0-32.0); MEAN CORPUSCULAR VOLUME 89.3 fL (81.0-99.0); MEAN PLATELET VOLUME 7.4 fl (7.4-10.4); MONOCYTES % 13.7 % (2.0-8.0); NEUTROPHILS % 51.5 % (40.0-76.0); PLATELET 340 x1000/uL (130-400)
[2020-04-04] MEDS: TRAMADOL 50MG TABLET PO PRN ×2 (07:11→21:43)
[2020-04-04 07:50] VITALS: BP 123/63
[2020-04-04] MEDS: MAGNESIUM GLUCONATE 500MG TABLET PO SCH (08:44)
[2020-04-04] MEDS: RISPERIDONE 0.5MG TABLET PO SCH (08:45)
[2020-04-04] MEDS: ASPIRIN 81MG EC TABLET PO SCH (08:45)
[2020-04-04] MEDS: NYSTATIN POWDER 15GM TOP SCH ×2 (08:45→21:44)
[2020-04-04] MEDS: CLOPIDOGREL 75MG TABLET PO SCH (08:45)
[2020-04-04] MEDS: ASCORBIC ACID 500 MG TABLET PO SCH (08:45)
[2020-04-04] MEDS: ENOXAPARIN 40MG/0.4ML SYR SUBCUT SCH (08:45)
[2020-04-04] MEDS: AMLODIPINE 5MG TABLET PO SCH ×2 (08:45→21:43)
[2020-04-04] MEDS: DULOXETINE HCL 60MG DR CAPSULE PO SCH (08:45)
[2020-04-04] MEDS: FERROUS SULFATE 325MG TABLET PO SCH ×3 (08:45→17:13)
[2020-04-04] MEDS: METFORMIN HCL 500MG TABLET PO SCH (08:45)
[2020-04-04] MEDS: GABAPENTIN 300MG CAPSULE PO SCH ×2 (08:45→17:13)
[2020-04-04] MEDS: MAGNESIUM OXIDE 400MG TABLET PO SCH ×2 (08:46→21:44)
[2020-04-04 13:31] VITALS: BP 125/70
[2020-04-04 20:00] VITALS: BP 129/67
[2020-04-04] MEDS: ATORVASTATIN CALCIUM 40MG TABLET PO SCH (21:43)
[2020-04-04] MEDS: FAMOTIDINE 20MG TABLET PO SCH (21:43)
[2020-04-04] MEDS: INSULIN GLARGINE UD 100 UNITS/ML SYR SUBCUT SCH (22:00)
[2020-04-05] MEDS: CEPHALEXIN 250MG CAPSULE PO SCH ×3 (00:55→13:19)
[2020-04-05] MEDS: HYDRALAZINE HCL 50MG TABLET PO SCH ×2 (06:01→13:19)
[2020-04-05] MEDS: BLOOD SUGAR DIAGNOSTIC STRIP TEST SCH ×2 (06:05→11:15)
[2020-04-05 06:13] LABS: EOSINOPHILS % 6.7 % (0.0-5.0); HEMOGLOBIN. 8.4 g/dL (12.0-16.0); LYMPHOCYTES % 20.1 % (20.0-50.0); MEAN CORPUSCULAR HEMOGLOBIN 29.9 pg (28.0-32.0); MEAN CORPUSCULAR VOLUME 89.2 fL (81.0-99.0); MEAN PLATELET VOLUME 7.8 fl (7.4-10.4); MONOCYTES % 11.9 % (2.0-8.0); NEUTROPHILS % 59.3 % (40.0-76.0); PLATELET 334 x1000/uL (130-400); RED BLOOD CELL COUNT 2.81 mill/uL (4.2-5.4); RED CELL DISTRIBUTION WIDTH 14.4 % (11.6-14.6)
[2020-04-05] MEDS: TRAMADOL 50MG TABLET PO PRN (06:59)
[2020-04-05] MEDS: INSULIN LISPRO 100 UNITS/ML SUBCUT SCH ×4 (07:02→13:23)
[2020-04-05 08:00] VITALS: BP 144/70
[2020-04-05] MEDS: ASCORBIC ACID 500 MG TABLET PO SCH (08:10)
[2020-04-05] MEDS: AMLODIPINE 5MG TABLET PO SCH (08:10)
[2020-04-05] MEDS: GABAPENTIN 300MG CAPSULE PO SCH (08:10)
[2020-04-05] MEDS: ASPIRIN 81MG EC TABLET PO SCH (08:10)
[2020-04-05] MEDS: MAGNESIUM GLUCONATE 500MG TABLET PO SCH (08:10)
[2020-04-05] MEDS: DULOXETINE HCL 60MG DR CAPSULE PO SCH (08:11)
[2020-04-05] MEDS: CLOPIDOGREL 75MG TABLET PO SCH (08:11)
[2020-04-05] MEDS: RISPERIDONE 0.5MG TABLET PO SCH (08:11)
[2020-04-05] MEDS: FERROUS SULFATE 325MG TABLET PO SCH ×2 (08:11→13:19)
[2020-04-05] MEDS: MAGNESIUM OXIDE 400MG TABLET PO SCH (08:11)
[2020-04-05] MEDS: ENOXAPARIN 40MG/0.4ML SYR SUBCUT SCH (08:11)
[2020-04-05] MEDS: NYSTATIN POWDER 15GM TOP SCH (08:13)
[2020-04-05 14:16] VITALS: BP 138/72
[2020-04-05] MEDS ORDERED: INSULIN GLARGINE UD 100 UNITS/ML SYR SUBCUT SCH (22:00)
[2020-04-06 04:07] LABS: 25-HYDROXY VITAMIN D3 24 ng/mL (.)
== END 2020-04-05 15:55 | disposition home health service (06) | DRG 92 ==
PROVIDERS: ADMIT Physical Medicine & Rehabilitation Spinal Cord Injury Medicine; ATTEND Family Medicine Adult Medicine
DX: G92 Toxic encephalopathy (principal); E11.52 Type 2 diabetes mellitus with diabetic peripheral angiopathy with gangrene; E44.0 Moderate protein-calorie malnutrition; E87.1 Hypo-osmolality and hyponatremia; L03.90 Cellulitis, unspecified; D64.9 Anemia, unspecified; E11.40 Type 2 diabetes mellitus with diabetic neuropathy, unspecified; E11.621 Type 2 diabetes mellitus with foot ulcer; E11.65 Type 2 diabetes mellitus with hyperglycemia; E78.5 Hyperlipidemia, unspecified; E83.42 Hypomagnesemia; F41.9 Anxiety disorder, unspecified; I10 Essential (primary) hypertension; I25.10 Atherosclerotic heart disease of native coronary artery without angina pectoris; J44.9 Chronic obstructive pulmonary disease, unspecified; K21.9 Gastro-esophageal reflux disease without esophagitis; R13.10 Dysphagia, unspecified; M19.90 Unspecified osteoarthritis, unspecified site; L97.509 Non-pressure chronic ulcer of other part of unspecified foot with unspecified severity; Z87.891 Personal history of nicotine dependence; Z89.421 Acquired absence of other right toe(s); Z96.651 Presence of right artificial knee joint
CPT/HCPCS: 36415; 76770; 80048; 80053; 80061; 81003; 82306; 82550; 82607; 82728; 82746; 82962; 83036; 83540; 83550; 83735; 83880; 84100; 84134; 84443; 85025; 92523; 92610; 93005; 93306; 93970; 95816; 97110; 97116; 97129; 97130; 97162; 97166; 97530; 97535; J0696; J1630; J1650; J1815; J3420; J3475; J7060

== ENCOUNTER 2024-11-15 13:12 | Emergency (ER) | payer MEDICARE, MEDICAID ==
[~2024-11-15] VITALS: Ht 162.6 cm; Wt 62.0 kg
[~2024-11-15 13:12] MED LIST: AMLO5TAB88 PO; ASCO500T20 PO; ASPI-1406 PO; CLIN-116 MT; CLOP75TA15 PO; DULO60CA45 PO; FAMO20TA8 PO; FERR325T23 PO; GABA-1180 PO; HYDR50TA39 PO; INSLIS SUBCUT; INSU100I28 SQ; LIP40 PO; MAG500 PO; METF500T PO; NYST15PO13 TP; PANT40TA51 MT; TOPUD PO; TRAM50TA3 MT
[2024-11-15 13:26] VITALS: O2SAT 98
[2024-11-15] MEDS: ACETAMINOPHEN 325MG TABLET PO ONE (14:09)
[2024-11-15 21:17] VITALS: BP 149/67; PULSE 78; RESP 13; TEMP 36.9; O2SAT 95
== END 2024-11-15 21:41 ==
LOC: ER 13:12
DX: S73.101A Unspecified sprain of right hip, initial encounter (principal); S43.401A Unspecified sprain of right shoulder joint, initial encounter; F03.90 Unspecified dementia, unspecified severity, without behavioral disturbance, psychotic disturbance, mood disturbance, and anxiety; E11.9 Type 2 diabetes mellitus without complications; I10 Essential (primary) hypertension; M19.90 Unspecified osteoarthritis, unspecified site; M85.851 Other specified disorders of bone density and structure, right thigh; Z79.82 Long term (current) use of aspirin; Z79.4 Long term (current) use of insulin; Z98.1 Arthrodesis status; Z79.899 Other long term (current) drug therapy; Z79.02 Long term (current) use of antithrombotics/antiplatelets; Z88.1 Allergy status to other antibiotic agents; Z88.0 Allergy status to penicillin; Z88.2 Allergy status to sulfonamides; W19.XXXA Unspecified fall, initial encounter; Y93.89 Activity, other specified; Y92.89 Other specified places as the place of occurrence of the external cause; Y99.8 Other external cause status
CPT/HCPCS: 73030; 73080; 73501; 73502; 99285; A4606

== ENCOUNTER 2025-07-06 10:27 | Inpatient (IN) | payer MEDICARE, MEDICAID ==
[~2025-07-06] VITALS: Ht 167.6 cm; Wt 54.4 kg
[~2025-07-06 10:27] MED LIST changes: -CLIN-116 MT; -FAMO20TA8 PO
[2025-07-06 10:29] VITALS: O2SAT 98
[2025-07-06 11:52] LABS: BASOPHILS % 0.4 % (0.0-2.0); EOSINOPHILS % 1.9 % (0.0-5.0); HEMATOCRIT. 37.9 % (36.0-48.0); HEMOGLOBIN. 11.2 g/dL (12.0-16.0); LYMPHOCYTES % 8.5 % (20.0-50.0); MEAN PLATELET VOLUME 7.4 fl (7.4-10.4); MONOCYTES % 8.9 % (2.0-8.0); NEUTROPHILS % 80.3 % (40.0-76.0); PLATELET 324 x1000/uL (130-400); RED BLOOD CELL COUNT 3.89 mill/uL (4.2-5.4); RED CELL DISTRIBUTION WIDTH 17.4 % (11.6-14.6)
[2025-07-06 12:09] LABS: CREATININE 1.4 mg/dL (0.6-1.0); UREA NITROGEN BLOOD 45.0 mg/dL (9-23)
[2025-07-06] MEDS ORDERED: CLINDAMYCIN 600MG PREMIX 50 ML IV ONE (13:30)
[2025-07-06] MEDS ORDERED: HEPARIN 25,000 UNITS PREMIX 250 ML IV PRN (13:30)
[2025-07-06] MEDS ORDERED: HEPARIN 5000 UNITS/ML VIAL IV ONE (13:30)
[2025-07-06] MEDS ORDERED: HEPARIN 80 UNITS/KG BOLUS IV SCH (15:00)
[2025-07-06] MEDS ORDERED: HEPARIN 25,000 UNITS PREMIX 250 ML IV SCH (15:00)
[2025-07-06] MEDS: CLINDAMYCIN 600MG PREMIX 50 ML IV SCH (15:12)
[2025-07-06 18:00] LABS: INR 1.0
[2025-07-06 20:00] VITALS: BP 135/89; PULSE 89; RESP 19; TEMP 36.14
[2025-07-06] MEDS ORDERED: HEPARIN BOLUS PRN aPTT <36 IV (21:00)
[2025-07-06] MEDS: ATORVASTATIN CALCIUM 40MG TABLET PO SCH (21:00)
[2025-07-06] MEDS ORDERED: HEPARIN BOLUS PRN aPTT 37-44 IV (21:00)
[2025-07-06] MEDS ORDERED: MORPHINE SULFATE 4 MG/ML INJ (FOR IV/IM USE) IV PRN ×2 (21:37→22:45)
[2025-07-06] MEDS ORDERED: NALOXONE HCL 0.4MG/ML VIAL IV PRN (21:45)
[2025-07-06] MEDS: BLOOD SUGAR DIAGNOSTIC STRIP TEST SCH (22:00)
[2025-07-06] MEDS ORDERED: DEXTROSE 50% WATER 50ML SYRINGE IV PRN (22:45)
[2025-07-06] MEDS ORDERED: ACETAMINOPHEN 325MG TABLET PO PRN (22:45)
[2025-07-06] MEDS ORDERED: GUAIFENESIN 200MG/10ML SUGAR FREE UDC PO PRN (22:45)
[2025-07-06] MEDS ORDERED: ACETAMINOPHEN 650MG SUPP PR PRN ×2 (22:45)
[2025-07-06] MEDS ORDERED: IPRATROPIUM/ALBUTEROL 0.5-3(2.5)MG/3ML NEB HHN PRN (22:45)
[2025-07-06] MEDS ORDERED: MAGNESIUM/ALUMINUM HYDROXIDE/SIMETHICONE 30ML UDC PO PRN (22:45)
[2025-07-06] MEDS ORDERED: DIPHENHYDRAMINE 50MG/ML VIAL IV PRN (22:45)
[2025-07-06] MEDS ORDERED: CLONIDINE 0.1MG TABLET PO PRN (22:45)
[2025-07-06] MEDS ORDERED: DOCUSATE SODIUM 100MG CAPSULE PO PRN (22:45)
[2025-07-07] MEDS: INSULIN LISPRO 100 UNITS/ML SUBCUT SCH ×2 (01:34→13:18)
[2025-07-07] MEDS: LACTATED RINGERS 1,000 ML IV SCH (03:30)
[2025-07-07 06:31] LABS: BASOPHILS % 0.5 % (0.0-2.0); EOSINOPHILS % 1.2 % (0.0-5.0); HEMATOCRIT. 36.6 % (36.0-48.0); HEMOGLOBIN. 11.4 g/dL (12.0-16.0); LYMPHOCYTES % 8.9 % (20.0-50.0); MEAN PLATELET VOLUME 7.8 fl (7.4-10.4); MONOCYTES % 10.7 % (2.0-8.0); NEUTROPHILS % 78.7 % (40.0-76.0); PLATELET 368 x1000/uL (130-400); RED BLOOD CELL COUNT 3.97 mill/uL (4.2-5.4); RED CELL DISTRIBUTION WIDTH 15.9 % (11.6-14.6)
[2025-07-07 06:42] LABS: TRIGLYCERIDE 98.0 mg/dL (0-150)
[2025-07-07 06:43] LABS: LDL CHOLESTEROL 58.0 mg/dL (5-100)
[2025-07-07] MEDS: BLOOD SUGAR DIAGNOSTIC STRIP TEST SCH (07:20)
[2025-07-07 08:00] VITALS: BP 150/78; PULSE 95; RESP 17; TEMP 36.1; O2SAT 100
[2025-07-07] MEDS: AMLODIPINE 5MG TABLET PO SCH (09:06)
[2025-07-07] MEDS: DULOXETINE HCL 60MG DR CAPSULE PO SCH (09:06)
[2025-07-07] MEDS: ASCORBIC ACID 500 MG TABLET PO SCH (09:06)
[2025-07-07] MEDS: MAGNESIUM GLUCONATE 500MG TABLET PO SCH (09:06)
[2025-07-07] MEDS: GABAPENTIN 300MG CAPSULE PO SCH (09:07)
[2025-07-07] MEDS: PANTOPRAZOLE 40MG DR TABLET PO SCH (09:07)
[2025-07-07 10:44] LABS: CREATININE 1.4 mg/dL (0.6-1.0); UREA NITROGEN BLOOD 45.0 mg/dL (9-23)
[2025-07-07] MEDS: ENOXAPARIN 40MG/0.4ML SYR SUBCUT SCH (11:31)
[2025-07-07] MEDS: INSULIN GLARGINE 100 UNITS/ML SUBCUT SCH (11:32)
[2025-07-07 12:00] VITALS: BP 141/68; PULSE 89; RESP 18; TEMP 36.4; O2SAT 98
[2025-07-07] MEDS: HYDRALAZINE HCL 50MG TABLET PO SCH (13:13)
[2025-07-07] MEDS: FERROUS SULFATE 325MG TABLET PO SCH (13:13)
[2025-07-07 13:51] LABS: BG BASE EXCESS -11.4 mmol/L (-2.0-3.0); BG CARBOXYHEMOGLOBIN 1.1 % (0.5-1.5); BG DEOXYHEMOGLOBIN 3.8 % (0.0-5.0); BG FRACTION INSPIRED OXYGEN 21; BG HCO3 ACT 14.3 mmol/L (21.0-28.0); BG METHEMOGLOBIN 0.3 % (0.5-1.5); BG OXYGEN SATURATION 96.1 % (94.0-98.0); BG OXYHEMOGLOBIN 94.8 % (94.0-98.0); BG PCO2 31.8 mmHg (32.0-45.0); BG PH 7.271 (7.350-7.450); BG PO2 87.9 mmHg (83.0-108.0); BG SAMPLE SITE RIGHT RADIAL; BG TOTAL HEMOGLOBIN 12.0 g/dL (12.0-16.0); BG VENT MODE ROOM AIR
[2025-07-07 16:00] VITALS: BP 138/80; PULSE 83; RESP 17; TEMP 36.1; O2SAT 98
[2025-07-07] MEDS: ONDANSETRON HCL 4MG/2ML INJ IV PRN (17:41)
[2025-07-07] MEDS: SODIUM BICARBONATE 100 MEQ in DEXTROSE 5% WATER 900 ML IV SCH (17:47)
[2025-07-07 20:00] VITALS: BP 150/81; PULSE 83; RESP 19; TEMP 36.2; O2SAT 94
[2025-07-07] MEDS ORDERED: ATORVASTATIN CALCIUM 40MG TABLET PO SCH ×2 (21:00)
[2025-07-08] VITALS: BP 140/50; PULSE 85; RESP 19; TEMP 36.7; O2SAT 98
[2025-07-08 04:00] VITALS: BP 140/50; PULSE 85; RESP 19; TEMP 36.7; O2SAT 98
[2025-07-08 07:14] LABS: BASOPHILS % 0.5 % (0.0-2.0); CREATININE 1.5 mg/dL (0.6-1.0); EOSINOPHILS % 1.7 % (0.0-5.0); HEMATOCRIT. 32.5 % (36.0-48.0); HEMOGLOBIN. 10.3 g/dL (12.0-16.0); LYMPHOCYTES % 8.7 % (20.0-50.0); MEAN PLATELET VOLUME 7.8 fl (7.4-10.4); MONOCYTES % 9.5 % (2.0-8.0); NEUTROPHILS % 79.6 % (40.0-76.0); PLATELET 350 x1000/uL (130-400); RED BLOOD CELL COUNT 3.61 mill/uL (4.2-5.4); RED CELL DISTRIBUTION WIDTH 15.5 % (11.6-14.6); UREA NITROGEN BLOOD 52 mg/dL (9-23)
[2025-07-08 07:16] LABS: ASPARTATE AMINOTRANSFERASE 10 IU/L (<34); BILIRUBIN TOTAL 0.3 mg/dL (0.1-1.0); PROTEIN TOTAL 6.9 g/dL (6.0-8.3)
[2025-07-08 08:00] VITALS: BP 126/61; PULSE 81; RESP 18; TEMP 35.4; O2SAT 98
[2025-07-08 12:00] VITALS: BP 165/80; PULSE 81; RESP 18; TEMP 36.1; O2SAT 97
[2025-07-08 16:00] VITALS: BP 144/75; PULSE 86; RESP 19; TEMP 36.1; O2SAT 98
[2025-07-08 20:00] VITALS: BP 123/55; PULSE 19; RESP 19; TEMP 37.1; O2SAT 99
[2025-07-09] VITALS: BP 136/70; PULSE 75; RESP 20; TEMP 37.1; O2SAT 99
[2025-07-09 04:00] VITALS: BP 136/94; PULSE 86; RESP 20; TEMP 36.7; O2SAT 99
[2025-07-09 06:20] LABS: BASOPHILS % 0.4 % (0.0-2.0); EOSINOPHILS % 1.8 % (0.0-5.0); HEMATOCRIT. 34.6 % (36.0-48.0); HEMOGLOBIN. 11.2 g/dL (12.0-16.0); LYMPHOCYTES % 9.5 % (20.0-50.0); MEAN PLATELET VOLUME 7.8 fl (7.4-10.4); MONOCYTES % 7.1 % (2.0-8.0); NEUTROPHILS % 81.2 % (40.0-76.0); PLATELET 371 x1000/uL (130-400); RED BLOOD CELL COUNT 3.81 mill/uL (4.2-5.4); RED CELL DISTRIBUTION WIDTH 15.3 % (11.6-14.6)
[2025-07-09 06:33] LABS: CREATININE 1.6 mg/dL (0.6-1.0); UREA NITROGEN BLOOD 49.0 mg/dL (9-23)
[2025-07-09 08:00] VITALS: BP 141/83; PULSE 80; RESP 18; TEMP 36.2; O2SAT 98
[2025-07-09 13:00] VITALS: BP 157/83; PULSE 88; RESP 18; TEMP 36.6; O2SAT 96
[2025-07-09] MEDS: ACETAMINOPHEN 325MG TABLET PO PRN (15:52)
[2025-07-09 20:00] VITALS: BP 152/76; PULSE 68; RESP 17; TEMP 37.1; O2SAT 98
[2025-07-10] VITALS: BP 147/57; PULSE 91; RESP 20; TEMP 36.4; O2SAT 99
[2025-07-10 04:00] VITALS: BP 139/83; PULSE 91; RESP 18; TEMP 37.2; O2SAT 97
[2025-07-10 08:00] VITALS: BP 119/67; PULSE 89; RESP 18; TEMP 36.3; O2SAT 98
[2025-07-10 12:00] VITALS: BP 117/64; PULSE 86; RESP 19; TEMP 36.3; O2SAT 98
[2025-07-10 13:39] LABS: HEMATOCRIT. 34.9 % (36.0-48.0); HEMOGLOBIN. 11.0 g/dL (12.0-16.0); MEAN PLATELET VOLUME 7.4 fl (7.4-10.4); PLATELET 365 x1000/uL (130-400); RED BLOOD CELL COUNT 3.89 mill/uL (4.2-5.4); RED CELL DISTRIBUTION WIDTH 15.4 % (11.6-14.6)
[2025-07-10 14:04] LABS: CREATININE 1.7 mg/dL (0.6-1.0); UREA NITROGEN BLOOD 44.0 mg/dL (9-23)
[2025-07-10 14:45] LABS: EOSINOPHILS % MANUAL 3.0 % (0.0-5.0); LYMPHOCYTES % MANUAL 9.0 % (20.0-60.0); MONOCYTES % MANUAL 6.0 % (2.0-8.0); NEUTROPHILS % MANUAL 82.0 % (45.0-75.0); PLATELET ESTIMATE NORMAL
[2025-07-10 16:00] VITALS: BP 144/73; PULSE 87; RESP 18; TEMP 36.2; O2SAT 96
[2025-07-10] MEDS: POTASSIUM CHLORIDE 20MEQ TABLET SR PO SCH (16:48)
[2025-07-10] MEDS: HYDROCODONE/ACETAMINOPHEN 5/325MG TABLET PO PRN (18:46)
[2025-07-10 20:00] VITALS: BP 152/70; PULSE 88; RESP 19; TEMP 36.6; O2SAT 97
[2025-07-11] VITALS: BP 139/67; PULSE 88; RESP 20; TEMP 36.9; O2SAT 99
[2025-07-11 04:00] VITALS: BP 134/69; PULSE 80; RESP 20; TEMP 36.7; O2SAT 99
[2025-07-11 08:00] VITALS: BP 142/64; PULSE 86; RESP 18; TEMP 36; O2SAT 97
[2025-07-11] MEDS: CITRIC ACID/SODIUM CITRATE SOLN 30ML UDC PO SCH (08:20)
[2025-07-11 10:01] LABS: HEMATOCRIT. 36.1 % (36.0-48.0); HEMOGLOBIN. 11.3 g/dL (12.0-16.0); MEAN PLATELET VOLUME 7.9 fl (7.4-10.4); PLATELET 414 x1000/uL (130-400); RED BLOOD CELL COUNT 3.97 mill/uL (4.2-5.4); RED CELL DISTRIBUTION WIDTH 15.4 % (11.6-14.6)
[2025-07-11 10:25] LABS: CREATININE 1.7 mg/dL (0.6-1.0); UREA NITROGEN BLOOD 40.0 mg/dL (9-23)
[2025-07-11 12:00] VITALS: BP 127/67; PULSE 89; RESP 18; TEMP 36.1; O2SAT 98
[2025-07-11 16:00] VITALS: BP 128/59; PULSE 80; RESP 17; TEMP 36.3; O2SAT 98
[2025-07-11] MEDS ORDERED: LINEZOLID 600 MG PREMIX 300 ML IV SCH (16:00)
[2025-07-11] MEDS ORDERED: AZTREONAM 1 G in DEXTROSE 5% WATER 50 ML IV SCH (17:00)
[2025-07-11 20:00] VITALS: BP 131/83; PULSE 71; RESP 18; TEMP 36.7; O2SAT 98
[2025-07-11] MEDS: HYDRALAZINE HCL 25MG TABLET PO SCH (21:36)
[2025-07-11] MEDS: LINEZOLID 600 MG PREMIX 300 ML IV SCH (23:51)
[2025-07-12] VITALS: BP 163/81; PULSE 89; RESP 17; TEMP 36.4; O2SAT 99
[2025-07-12] MEDS: AZTREONAM 1 G in DEXTROSE 5% WATER 50 ML IV SCH (00:44)
[2025-07-12 04:00] VITALS: BP 159/77; PULSE 74; RESP 20; TEMP 37; O2SAT 99
[2025-07-12 06:16] LABS: BAND% 3.0 % (1.0-6.0); LYMPHOCYTES % MANUAL 7.0 % (20.0-60.0); MONOCYTES % MANUAL 2.0 % (2.0-8.0); NEUTROPHILS % MANUAL 88.0 % (45.0-75.0)
[2025-07-12 06:17] LABS: PLATELET ESTIMATE SLIGHTLY INCREASED
[2025-07-12 06:48] LABS: BASOPHILS % 0.9 % (0.0-2.0); EOSINOPHILS % 2.8 % (0.0-5.0); HEMATOCRIT. 31.7 % (36.0-48.0); HEMOGLOBIN. 10.0 g/dL (12.0-16.0); LYMPHOCYTES % 7.4 % (20.0-50.0); MEAN PLATELET VOLUME 8.0 fl (7.4-10.4); MONOCYTES % 8.3 % (2.0-8.0); NEUTROPHILS % 80.6 % (40.0-76.0); PLATELET 378 x1000/uL (130-400); RED BLOOD CELL COUNT 3.48 mill/uL (4.2-5.4); RED CELL DISTRIBUTION WIDTH 15.2 % (11.6-14.6)
[2025-07-12 07:05] LABS: CREATININE 1.6 mg/dL (0.6-1.0); UREA NITROGEN BLOOD 38.0 mg/dL (9-23)
[2025-07-12 08:00] VITALS: BP 163/77; PULSE 74; RESP 18; TEMP 35.9; O2SAT 96
[2025-07-12 16:00] VITALS: BP 128/77; PULSE 77; RESP 18; TEMP 36.4; O2SAT 98
[2025-07-12 20:00] VITALS: BP 137/76; PULSE 84; RESP 19; TEMP 35.7; O2SAT 99
[2025-07-12] MEDS: AMLODIPINE 5MG TABLET PO SCH (21:01)
[2025-07-13] VITALS: BP 120/65; PULSE 71; RESP 18; TEMP 36.8; O2SAT 98
[2025-07-13 04:00] VITALS: BP 139/77; PULSE 68; RESP 17; TEMP 36.4; O2SAT 100
[2025-07-13 08:00] VITALS: BP 134/75; PULSE 79; RESP 19; TEMP 36.4; O2SAT 96
[2025-07-13] MEDS: ENOXAPARIN 30MG/0.3ML SYR SUBCUT SCH (09:03)
[2025-07-13] MEDS ORDERED: HYDROCODONE/ACETAMINOPHEN 5/325MG TABLET PO SCH (11:15)
[2025-07-13 12:00] VITALS: BP 119/63; PULSE 76; RESP 18; TEMP 36.4; O2SAT 98
[2025-07-13 16:00] VITALS: BP 134/58; PULSE 62; RESP 19; TEMP 36.4; O2SAT 98
[2025-07-13 20:00] VITALS: BP 148/59; PULSE 86; RESP 20; TEMP 36.4; O2SAT 98
[2025-07-13] MEDS: AMLODIPINE 2.5MG TABLET PO SCH (20:33)
[2025-07-14] VITALS: BP 158/73; PULSE 89; RESP 19; TEMP 36.7; O2SAT 99
[2025-07-14 04:00] VITALS: BP 150/69; PULSE 100; RESP 20; TEMP 36.2; O2SAT 100
[2025-07-14 07:37] LABS: BASOPHILS % 0.4 % (0.0-2.0); EOSINOPHILS % 3.3 % (0.0-5.0); HEMATOCRIT. 31.8 % (36.0-48.0); HEMOGLOBIN. 10.2 g/dL (12.0-16.0); LYMPHOCYTES % 10.7 % (20.0-50.0); MEAN PLATELET VOLUME 7.7 fl (7.4-10.4); MONOCYTES % 9.1 % (2.0-8.0); NEUTROPHILS % 76.5 % (40.0-76.0); PLATELET 390 x1000/uL (130-400); RED BLOOD CELL COUNT 3.58 mill/uL (4.2-5.4); RED CELL DISTRIBUTION WIDTH 15.0 % (11.6-14.6)
[2025-07-14 07:40] LABS: CREATININE 1.5 mg/dL (0.6-1.0)
[2025-07-14 07:41] LABS: UREA NITROGEN BLOOD 36.0 mg/dL (9-23)
[2025-07-14 08:00] VITALS: BP 119/64; PULSE 78; RESP 19; TEMP 36.4; O2SAT 96
[2025-07-14] MEDS: ASPIRIN 81MG EC TABLET PO SCH (09:15)
[2025-07-14] MEDS: PANTOPRAZOLE 40MG DR TABLET PO SCH (09:16)
[2025-07-14] MEDS: CLOPIDOGREL 75MG TABLET PO SCH (09:16)
[2025-07-14] MEDS: POTASSIUM CHLORIDE 20MEQ TABLET SR PO SCH (09:17)
[2025-07-14] MEDS ORDERED: LOV30 SUBCUT (11:54)
[2025-07-14] MEDS ORDERED: AMLO5TAB88 PO (11:54)
[2025-07-14 12:00] VITALS: BP 116/45; PULSE 83; RESP 19; TEMP 36.4; O2SAT 97
[2025-07-14] MEDS: HYDRALAZINE HCL 50MG TABLET PO SCH (13:47)
[2025-07-14 16:00] VITALS: BP 116/69; PULSE 83; RESP 19; TEMP 36.4; O2SAT 99
[2025-07-14 20:00] VITALS: BP 136/67; PULSE 90; RESP 18; TEMP 36.2; O2SAT 97
[2025-07-15] VITALS: BP 153/43; PULSE 81; RESP 18; TEMP 36.2; O2SAT 97
[2025-07-15 04:00] VITALS: BP 130/63; PULSE 77; RESP 18; TEMP 36; O2SAT 97
[2025-07-15 08:00] VITALS: BP 162/67; PULSE 81; RESP 18; TEMP 36.5; O2SAT 95
[2025-07-15 12:00] VITALS: BP 122/58; PULSE 91; RESP 17; TEMP 36.4; O2SAT 95
[2025-07-15] MEDS: HYDROCODONE/ACETAMINOPHEN 5/325MG TABLET PO PRN (12:29)
[2025-07-15 16:00] VITALS: BP 109/61; PULSE 89; RESP 17; TEMP 37; O2SAT 96
[2025-07-15 20:00] VITALS: BP 138/62; PULSE 95; RESP 18; TEMP 36.4; O2SAT 97
[2025-07-16] VITALS: BP 123/71; PULSE 69; RESP 20; TEMP 36.6; O2SAT 96
[2025-07-16 08:00] VITALS: BP 136/69; PULSE 83; RESP 17; TEMP 37.1; O2SAT 98
[2025-07-16 12:00] VITALS: BP 134/66; PULSE 89; RESP 17; TEMP 36.8; O2SAT 97
[2025-07-16 16:00] VITALS: BP 135/65; PULSE 81; RESP 17; TEMP 36.7; O2SAT 98
[2025-07-16 20:00] VITALS: BP 171/74; PULSE 62; RESP 17; TEMP 36.5; O2SAT 97
[2025-07-17] VITALS (7 sets, daily range): BP systolic 119–158; BP diastolic 58–78; PULSE 78–95; RESP 16–18; TEMP 36.1–36.6; O2SAT 95–98
[2025-07-17] MEDS: IOHEXOL-350 100 ML BOTTLE ONE (20:13)
== END 2025-07-17 23:59 | DRG 299 ==
LOC: ER 10:27 → EDBEDREQTM 16:22 → EDBEDREQ 16:22 → EDBEDREQSVC 16:22 → 6EST 16:35 → ENRESERV 17:47
PROVIDERS: ADMIT Family Medicine Adult Medicine; ATTEND Family Medicine Adult Medicine
DX: E11.52 Type 2 diabetes mellitus with diabetic peripheral angiopathy with gangrene (principal); G93.41 Metabolic encephalopathy; E87.20 Acidosis, unspecified; N17.9 Acute kidney failure, unspecified; Z66 Do not resuscitate; D64.9 Anemia, unspecified; E11.22 Type 2 diabetes mellitus with diabetic chronic kidney disease; D72.821 Monocytosis (symptomatic); E11.65 Type 2 diabetes mellitus with hyperglycemia; R65.10 Systemic inflammatory response syndrome (SIRS) of non-infectious origin without acute organ dysfunction; Z79.02 Long term (current) use of antithrombotics/antiplatelets; F03.90 Unspecified dementia, unspecified severity, without behavioral disturbance, psychotic disturbance, mood disturbance, and anxiety; J44.9 Chronic obstructive pulmonary disease, unspecified; I12.9 Hypertensive chronic kidney disease with stage 1 through stage 4 chronic kidney disease, or unspecified chronic kidney disease; N18.31 Chronic kidney disease, stage 3a; I77.1 Stricture of artery; Z89.611 Acquired absence of right leg above knee; E78.5 Hyperlipidemia, unspecified; E87.6 Hypokalemia; S30.810A Abrasion of lower back and pelvis, initial encounter; K21.9 Gastro-esophageal reflux disease without esophagitis; K44.9 Diaphragmatic hernia without obstruction or gangrene; X58.XXXA Exposure to other specified factors, initial encounter; I25.2 Old myocardial infarction; Z79.4 Long term (current) use of insulin; Z79.82 Long term (current) use of aspirin; Z79.84 Long term (current) use of oral hypoglycemic drugs; Z79.899 Other long term (current) drug therapy; Z88.1 Allergy status to other antibiotic agents; Z88.2 Allergy status to sulfonamides; Z88.3 Allergy status to other anti-infective agents; Z86.73 Personal history of transient ischemic attack (TIA), and cerebral infarction without residual deficits; Y93.89 Activity, other specified; Y92.89 Other specified places as the place of occurrence of the external cause; Y99.8 Other external cause status
CPT/HCPCS: 36415; 36600; 71045; 73620; 75635; 76770; 80048; 80053; 80061; 82375; 82550; 82805; 82962; 83036; 84145; 84443; 85025; 93005; 93306; 93923; 96365; 99291; J1200; J1650; J1815; J2020; J2405; J3490; J7060; J7070; J7120; Q9967